=== PATIENT | male | born 1935 | race Caucasian/White ===

== ENCOUNTER 2016-11-02 06:20 | Inpatient (IN) ==
[2016-11-02] MEDS ORDERED: CeFAZolin Pre 2,000 MG/100 ML 2,000 MG/100 ML BAG IVPB ONE (06:49)
[2016-11-02] MEDS ORDERED: Lidocaine 1% 20 ML MDV ID ONE (06:49)
[2016-11-02] MEDS ORDERED: *HR* FentaNYL (PF) 100 MCG/2 ML VIAL ONE (06:54)
[2016-11-02] MEDS ORDERED: Lidocaine -MPF 2% 2 ML VIAL ONE (06:54)
[2016-11-02] MEDS ORDERED: *HR* Propofol 200 MG/20 ML VIAL IVP ONE (06:54)
[2016-11-02] MEDS ORDERED: *HR* Succinylcholine 200 MG/10 ML VIAL IVP ONE (06:54)
[2016-11-02] MEDS ORDERED: Lidocaine -MPF 4% 5 ML AMPUL ONE (06:54)
[2016-11-02] MEDS ORDERED: Ringers Solution, Lactated 1,000 ML IVC SCH (07:00)
[2016-11-02] MEDS ORDERED: Heparin 1,000 UNITS/500 mL NS 500 ML ONE (07:02)
[2016-11-02] MEDS ORDERED: *HR* Rocuronium Bromide 50 MG/5 ML VIAL ONE (07:04)
[2016-11-02] MEDS ORDERED: Heparin 1,000 UNITS/500 mL NS 1,000 ML ONE (07:15)
[2016-11-02] MEDS ORDERED: Lidocaine 1% 20 ML MDV ONE (07:15)
--- NOTE | 2016-11-02 07:21 | History & Physical Report ---
Date of Encounter: 11/02/16 Time of Encounter: 07:20 24 Hour HP Update - Instructions Instructions: If the History and Physical is less than 30 days old and was completed prior to A.M. admission and or procedure and has NOT been updated on calendar day of procedure please complete this update prior to performing procedure. - Update Patient reports changes in Medical Condition: No Changes in assessment/condition: No Changes in Medication: No Preop tests/diagnostics Reviewed: Yes Surgery Remains Indicated: Yes Consent for Planned Operative Procedure(s) Verified: Yes - Pre-Operative Checklist Preoperative Checklist Indicated: Yes Home Medications Include Beta Kari: Yes Beta Kari Taken Today (Day of Surgery): Yes Beta Kari Taken Yesterday (Day Prior to Surgery): Yes Is VTE Prophylaxis Indicated?: Yes
--- NOTE | 2016-11-02 07:25 | Anesthesia Evaluation PreOp ---
Date of Encounter: 11/02/16 Time of Encounter: 07:22 - Past History Planned Operation: R-cEA Cardiac History: [place] (2000,), HTN, Hyperlipidemia, Cardiac Surgery (CABG x 4 2000), Cardiac Stent (NO stents) Pulmonary History: Other LEASING ASSOCIATE History: Syncope, Other (dementia, carotid dz) Anesthesia History: No Prior Anesthetic Complications, Past Anesthesia ( Inguinal Hernia repair 01/2010, CABG x 2009, inguinal/femoral hernia repair w/ mesh, Expl Lap w/ small bowel resetion, Open Appy. IOncisional hernia repair, infected mesh removal) Alcohol Use: none Drug use: none Medications and Allergies Aspirin Enteric Coated [Aspirin EC] 81 mg PO DAILY 06/26/15 [History] Atorvastatin [Lipitor] 20 mg PO DAILY 06/26/15 [History] Donepezil [Aricept] 10 mg PO DAILY 06/26/15 [History] Ezetimibe [Zetia] 10 mg PO DAILY 06/26/15 [History] Levothyroxine [Synthroid] 25 mcg PO DAILY 06/26/15 [History] Multivit-Min/FA/Lycopen/Lutein [Centrum Silver Tablet] 1 tab PO DAILY 06/26/15 [ History] Ramipril [Altace] 10 mg PO DAILY 06/26/15 [History] Melatonin [Melatin] 3 mg PO HS 10/01/16 [History] Memantine [Namenda] 5 mg PO DAILY 10/01/16 [History] Nitroglycerin 0.4 mg SL DAILY PRN 10/01/16 [History] Metoprolol XL (24 HR) Succ [Toprol Xl] 50 mg PO DAILY 10/12/16 [History] Oxybutynin [Ditropan] 2.5 mg PO HS 10/12/16 [History] Allergies diphenhydramine [From Benadryl] Adverse Reaction (Verified 10/12/16 11:32) Agitated - Meds/Allergy Pre-op Review Medications Reviewed: Yes Allergies Reviewed: Yes Beta Blockers on Current Med List: Yes (Metoprolol) If Beta Blockers taken, Date/Time (Last Dose taken): 08/02/17 @ 0600 Anesthesia Results - Labs Laboratory Tests 10/28/16 10/28/16 10/28/16 11:33 11:33 11:33 WBC 5.8 Hgb 13.7 Hct 41.6 Plt Count 183 PT 10.9 INR 1.0 APTT 28.1 Sodium 142 Potassium 4.2 Chloride 105 Carbon Dioxide 31 H BUN 18 Creatinine 1.03 Est GFR (Non-Af Amer) > 60 Glucose 64 L - Imaging EKG: image reviewed (51bpm SB) Anesthesia Exam O2 Sat Height 1.6 m Height 1.6 m Weight 60.328 kg Weight 60.328 kg O2 Sat by Pulse Oximetry 98 Vital Signs Temp Pulse Resp BP Pulse Ox 97.9 F 50 18 147/73 98 11/02/16 06:42 11/02/16 06:42 11/02/16 06:42 11/02/16 06:42 11/02/16 06:42 Height: 5'3" Weight: 131# NPO (# of Hours): MNOC - HEENT Pupil (Motor): Pupils equal, EOMI Mallampati: II Teeth: Edentulous Oral Opening: Greater than 3 - LEASING ASSOCIATE LOC: Oriented LEASING ASSOCIATE Motor: Normal RUE, Normal LUE, Normal RLE, Normal LLE, Normal Face LEASING ASSOCIATE Sensory: Normal: RUE, LUE, RLE, LLE, Face - Cardiac Rhythm: Regular Murmur: Systolic JVD: No - Pulmonary Breath Sounds: bilateral Clear Respiratory Effort: Symmetrical Anesthesia Assess/Plan ASA Score: 3 Modified Eulalia Scale for Level of Consciousness: Cooperative, oriented, and tranquil Anesthetic Plan: General Autologous Blood: Yes Monitoring Plan: Standard Monitors Recovery Plan: PACU Anes Supervising Prov Stmt: PT seen/evaluated, R&B discussed, questions answered and consent obtained. Ze Fontanez MD
[2016-11-02] MEDS ORDERED: Acetaminophen IV 1,000 MG/100 ML INFUS..BTL ONE (07:39)
[2016-11-02] MEDS ORDERED: *HR* Remifentanil 2 MG VIAL IVP ONE (08:24)
[2016-11-02] MEDS ORDERED: EPHEDrine 50 MG/ML VIAL ONE (08:55)
--- NOTE | 2016-11-02 10:24 | Operative Note ---
Date of procedure: 11/02/16 Pre-op diagnosis: right carotid stenosis Post-op diagnosis: same Procedure: right carotid endarterectomy with 8 Fr shunt and patch angioplasty Complications: none Anesthesia: DIVINEA Surgeon: Winston Strickland Estimated blood loss (cc): 100 Specimen: none Condition: stable Disposition: PACU Procedure in Detail: History Krzysztof Irving is an 81-year-old white male who was found to have a abnormal carotid duplex scan. He has a history of dementia. Because of the abnormality on the duplex scan and antrum was obtained. This demonstrated a critical stenosis of the right carotid artery at the level of the internal carotid. The patient was originally scheduled for surgery approximately 2 weeks ago but this needed to be postponed as he was severely hypertensive. He now returns. His blood pressure is well-controlled. Procedure After informed consent was obtained the patient was taken to the operating room. General endotracheal anesthesia was established under arterial line pressure monitoring. The right neck was sterilely prepped and draped. A timeout protocol was observed. An oblique incision was made parallel to the anterior border of the sternocleidomastoid muscle. Dissection was carried down to the carotid bifurcation. Selective control was obtained of the carotid vessels. Heparin was administered in a dose of 5000 units. After 3 minutes later the vessels were clamped with the internal carotid artery clamped first. Using an 11 blade knife and Magallon scissors the artery was opened beginning at the distal common carotid artery and extending up into the internal carotid artery. An 8 Spanish shunt was then inserted atraumatically. Patency of the shunt was confirmed by the use of intraoperative Doppler. Evaluation of the plaque revealed a very thick and dense plaque. This was a homogeneous. There was no finding of acute thrombus or dissection in this region. The endarterectomy was undergone at the distal aspect of the common carotid artery. The dissection was carried circumferentially. It was carried distally into this. Thyroid and external carotid arteries as well as the internal carotid artery. The endpoint was smooth and no tacking sutures were necessary. A patch angioplasty was then performed after inspection of the bed of the vessel to ensure that there is no residual debris present. The angioplasty with a Hemashield patch was performed with 6-0 Prolene suture. Leaving a small space open on the suture line shunt was clamped divided and removed. The final few sutures were placed. The internal was allowed to backbleed and was reclamped. The external and common were opened and finally the internal was reopened. Excellent Doppler signals and pulses were identified throughout the carotid system. A superficial cervical block using half percent Marcaine was performed. The wound was irrigated with antibiotic-containing solution. It was closed with absorbable sutures. A dry sterile dressing was applied. The patient was extubated in the operating room and found to be neurologically stable. He was transported to the recovery room in a hemodynamically stable condition.
[2016-11-02] MEDS ORDERED: *HR* Metoprolol 5 MG/5 ML VIAL IVP ONE (11:03)
[2016-11-02] MEDS ORDERED: Albuterol 2.5 MG/3 ML NEBULIZER IH PRN (11:06)
[2016-11-02] MEDS ORDERED: Ondansetron 4 MG/2 ML VIAL IVP PRN ×2 (11:06→11:59)
[2016-11-02] MEDS ORDERED: *HR* Labetalol 100 MG/20 ML MDV IVP PRN (11:06)
[2016-11-02] MEDS ORDERED: Naloxone 0.4 MG/ML INJ IVP PRN (11:59)
[2016-11-02] MEDS ORDERED: *HR* Morphine 2 MG/ML SYRINGE IVP PRN (11:59)
[2016-11-02] MEDS ORDERED: Acetaminophen 325 MG TABLET PO PRN (11:59)
[2016-11-02] MEDS ORDERED: *HR* HYDROcodone/Acet 5/325 mg TABLET PO PRN (11:59)
[2016-11-02] MEDS ORDERED: Nitroglycerin 0.4 MG TAB.SUBL SL PRN (11:59)
--- NOTE | 2016-11-02 12:06 | Anesthesia Evaluation Post Op ---
Date of Encounter: 11/02/16 Time of Encounter: 12:05 - Vital Signs Vital Signs: Vital Signs/O2 Sat/Glucose, Most Current Temp Pulse Resp BP Pulse Ox 11/02/16 11:58 98 F 58 16 134/64 98 11/02/16 11:48 98 F 59 16 150/77 98 11/02/16 11:38 57 16 179/84 97 11/02/16 11:28 57 16 186/88 99 11/02/16 11:18 98 F 60 16 188/90 99 11/02/16 11:08 68 16 193/97 96 11/02/16 10:58 71 16 191/95 94 L 11/02/16 10:48 97.3 F L 101 16 191/95 99 - Lungs Lungs: Clear Ascult./Percussion - Airway Airway: Non-obstructed - Cardiovascular Regular Rate - Mental Status Mental Status: Alert & Oriented, Answers Appropriately - Pain Pain Scale: 0 Pain Scale used: Numeric (1 - 10) - Nausea Vomiting Nausea Vomiting: Not Present - Hydration Hydration: NPO, Sanon catheter - Discharge PostOp Status: Transfer Patient to floor Anes Supervising Prov Stmt: Pt seen/evaluated, VSS and pt has met criteria for discharge to floor. - MD Estee
[2016-11-02] MEDS: ceFAZolin 2,000 MG in D5% in Water 100 ML IVPB SCH (15:24)
[2016-11-02] MEDS ORDERED: *HR* LORazepam 2 MG/ML VIAL ONE (20:23)
[2016-11-02] MEDS: Melatonin 3 MG TABLET PO SCH (22:18)
[2016-11-03] MEDS: ceFAZolin 2,000 MG in D5% in Water 100 ML IVPB SCH (00:06)
[2016-11-03 04:24] LABS: Basophils % 0.4 %; Eosinophils # 0.1 K/mcL (0.0-0.6); Eosinophils % 1.7 %; Hematocrit 34.6 % (37.5-50.1); Immature Granulocytes % 0.3 % (0-4); Lymphocytes # 1.3 K/mcL (0.6-4.6); Lymphocytes % 18.7 %; Mean Corpuscular HGB Conc 32.4 g/dL (31.6-35.5); Mean Corpuscular Hemoglobin 31.9 pg (28.0-33.3); Mean Corpuscular Volume 98.6 fL (83.0-100.0); Mean Platelet Volume 10.1 fL (9.4-12.4); Monocytes # 0.5 K/mcL (0.0-1.3); Monocytes % 7.2 %; Neutrophils # 4.9 K/mcL (1.6-8.9); Platelet Count 142 K/mcL (140-400); Red Blood Count 3.51 M/mcL (4.19-5.50); Red Cell Distribution Width 13.4 % (11.5-14.5); Segmented Neutrophils % 71.7 %
[2016-11-03 04:34] LABS: Hemoglobin 11.2 g/dL (12.9-16.9)
[2016-11-03 04:36] LABS: BUN/Creatinine Ratio 16 (6-26); Blood Urea Nitrogen 16 mg/dL (8-26); Calcium 8.5 mg/dL (8.6-10.8); Carbon Dioxide 27 mEq/L (19-29); Chloride 104 mEq/L (98-109); Glucose 114 mg/dL (70-99); Osmolality,Calculated 292 (280-300); Potassium 4.1 mEq/L (3.5-4.5); Sodium 140 mEq/L (136-145); eGFR For African Americans > 60 (> 60); eGFR For Non-African Americans > 60 (> 60)
[2016-11-03] MEDS: Lisinopril 20 MG TABLET PO SCH (09:33)
[2016-11-03] MEDS: Aspirin Enteric Coated 81 MG Tablet PO SCH (09:33)
[2016-11-03] MEDS: Metoprolol XL (24 HR) Succ 50 MG TAB.ER.24H PO SCH (09:34)
[2016-11-03] MEDS: Levothyroxine 25 MCG TABLET PO SCH (09:34)
[2016-11-03] MEDS: ZETIA 10 MG PO SCH (09:34)
[2016-11-03] MEDS: Multivit/Ca/Min/Fe/FA 1 TAB TABLET PO SCH (09:34)
--- NOTE | 2016-11-03 19:21 | Vascular/[facility] Progress Note ---
Date of Encounter: 11/03/16 Time of Encounter: 19:19 - Assessment and plan (1) Altered mental status Current Visit: Yes Status: Chronic Chronic Alzheimer's dementia. Exacerbation following general anesthesia. Qualifiers: Altered mental status type: unspecified Qualified Code(s): R41.82 - Altered mental status, unspecified (2) Carotid artery disease Current Visit: Yes Status: Acute Status post right carotid endarterectomy. The patient has no neurologic deficits related to the successful right carotid endarterectomy. Due to his agitation it was felt best that the patient be treated as a inpatient for further rehabilitation. Consultation was obtained from appropriate rehabilitative services will also agree with temporary inpatient rehabilitation care. Qualifiers: Laterality: right Qualified Code(s): I77.9 - Disorder of arteries and arterioles, unspecified - Subjective Interval history: Patient is postoperative day #1 following right carotid endarterectomy. The patient has demonstrated no new neurologic deficits. He has no particular complaints. Consultations have been placed for evaluation for short term inpatient rehabilitation. Vital Signs, Last 4 Hours Temp Pulse Resp BP Pulse Ox 11/03/16 16:33 98.5 F 58 16 144/83 97 11/03/16 16:00 58 - Physical Examination General: Present: Other (Mildly agitated.) HEENT: Present: Normocephaly, Other (Ecchymosis around the right eye.) Neck: Absent: JVD, Midline deformity, Tracheal deviation Cardiac: Present: Reg Rate and Rhythm Lungs: Present: Normal Breath Sounds Neuro: Present: No focal deficits noted, Other (Impaired mentation with mild agitation secondary to his chronic dementia.) Vascular: Present: Surgical incisions (Right neck surgical dressing is clean and dry and intact.) Abdomen: Present: Soft, Non-tender - VTE Documentation of Mechanical Device: Intermittent pneumatic compression device Results 11/03/16 04:02 11/03/16 04:02 Lab Results, Last 24 hours 11/03/16 11/03/16 04:02 04:02 WBC 6.9 Hgb 11.2 L D Hct 34.6 L Plt Count 142 Sodium 140 Potassium 4.1 Chloride 104 Carbon Dioxide 27 BUN 16 Creatinine 1.03 Glucose 114 H Calcium 8.5 L Consult Discharge Plan - Plan Referrals: Gregorio Hutchins Jr, MD [Primary Care Provider] -
[2016-11-03] MEDS: Melatonin 3 MG TABLET PO SCH (20:40)
[2016-11-03] MEDS: *HR* LORazepam 2 MG/ML VIAL IVP PRN (20:45)
[2016-11-04] MEDS: *HR* LORazepam 2 MG/ML VIAL IVP PRN (03:43)
[2016-11-04 11:45] VITALS: BP 136/78
--- NOTE | 2016-11-04 12:26 | Discharge Summary ---
Date of Encounter: 11/04/16 Time of Encounter: 12:24 - Discharge Diagnosis (1) Altered mental status Priority: Secondary Status: Chronic Comments: Chronic Alzheimer's disease Qualifiers: Altered mental status type: unspecified Qualified Code(s): R41.82 - Altered mental status, unspecified (2) Carotid artery disease Priority: Primary Status: Acute Comments: Critical right internal carotid artery stenosis Qualifiers: Laterality: right Qualified Code(s): I77.9 - Disorder of arteries and arterioles, unspecified (3) HTN (hypertension) Priority: Secondary Status: Chronic Comments: Chronic hypertension. Blood pressure has been well controlled during this hospitalization after alteration of medication schedule preoperatively per Dr. Hutchins. Qualifiers: Hypertension type: essential hypertension Qualified Code(s): I10 - Essential (primary) hypertension - Discharge Medications Home Medications: Aspirin Enteric Coated [Aspirin EC] 81 mg PO DAILY 06/26/15 [History] Atorvastatin [Lipitor] 20 mg PO DAILY 06/26/15 [History] Donepezil [Aricept] 10 mg PO DAILY 06/26/15 [History] Ezetimibe [Zetia] 10 mg PO DAILY 06/26/15 [History] Levothyroxine [Synthroid] 25 mcg PO DAILY 06/26/15 [History] Multivit-Min/FA/Lycopen/Lutein [Centrum Silver Tablet] 1 tab PO DAILY 06/26/15 [ History] Ramipril [Altace] 10 mg PO DAILY 06/26/15 [History] Melatonin [Melatin] 3 mg PO HS 10/01/16 [History] Memantine [Namenda] 5 mg PO DAILY 10/01/16 [History] Nitroglycerin 0.4 mg SL DAILY PRN 10/01/16 [History] Metoprolol XL (24 HR) Succ [Toprol Xl] 50 mg PO DAILY 10/12/16 [History] Oxybutynin [Ditropan] 2.5 mg PO HS 10/12/16 [History] Allergies/Adverse Reactions: Allergies diphenhydramine [From Benadryl] Adverse Reaction (Verified 10/12/16 11:32) Agitated Date of admission: 11/02/16 12:41 Primary care physician: Gregorio Hutchins Jr, MD Consults: 11/03/16 08:29 Consult to Theatre Manager [CONS] Routine Reason for SW Consult: home health assessment vs in patient rehab for Alz Dementia 11/03/16 08:31 Consult to Physical Therapy [CONS] Routine Comment: Evaluate, develop and implement POC 11/03/16 13:26 OT [Consult to Occupational Therapy] [CONS] Routine Comment: Evaluate, develop and implement POC Procedure(s) Performed: Right carotid endarterectomy Discharging clinician: Winston Strickland Anticipated date of discharge: 11/04/16 - Patient Status Disposition: Transfer SNF Condition: Fair Functional capacity at discharge: uses cane/walker Overall status at discharge: patient is progressing back to baseline - Discharge Instructions Follow Up With: Gregorio Hutchins Jr, MD [Primary Care Provider] - Winston Strickland MD [Partnered Physician] - (2 weeks) - Diet and Activity Activity: as per physical therapy Diet: advance to your usual diet - Hospital Course Hospital course: Mr. Irving is a 81 year old male Admitted for high-grade and critical right internal carotid artery stenosis. Patient also has a long-standing history of Alzheimer's disease and hypertension. The patient underwent a right carotid endarterectomy. The patient tolerated the procedure well. There were no periprocedural complications. The patient had mental status changes and was more week and dependent on assistance following surgery. Therefore he was seen in consultation by physical therapy and occupational therapy and school social worker. It was judged appropriate for the patient to go to an inpatient rehabilitation status on a short-term basis before returning to home. The patient will be going to [facility] upon discharge later today. - Time Spent with Patient Total time spent providing and/or coordinating discharge services: Exam Vital Signs, Last 4 Hours Temp Pulse Resp BP Pulse Ox 11/04/16 12:00 55 11/04/16 11:43 98.0 F 51 16 136/78 100 11/04/16 08:41 58 HEENT: Present: Normocephaly, Trachea midline, Other (Right periorbital ecchymosis) Neck: Absent: JVD, Midline deformity, Tracheal deviation Cardiac: Present: Reg Rate and Rhythm Lungs: Present: Normal Breath Sounds Neuro: Present: Other (Chronic dementia. Patient is sedated secondary to use of Ativan earlier this morning.) Abdomen: Present: Soft, Non-tender Vascular: Present: Surgical incisions (Right neck incision is clean and dry and healing well.) - VTE Documentation of Mechanical Device: Intermittent pneumatic compression device
--- NOTE | 2016-11-04 12:35 | Physician Discharge Referral ---
ExtendedCare Referral Info Transfer To: [facility] Provider in Charge: [place] Provider in Charge after Transfer: PCP Institutional Level of Care: Skilled - Diagnosis (1) Altered mental status Priority: Primary Status: Chronic (2) Carotid artery disease Priority: Primary Status: Acute (3) HTN (hypertension) Priority: Secondary Status: Chronic Prognosis: Fair Aware of Diagnosis: Patient, Family Aware of Prognosis: Patient, Family - Transfer Medications Home Medications: Aspirin Enteric Coated [Aspirin EC] 81 mg PO DAILY 06/26/15 [History] Atorvastatin [Lipitor] 20 mg PO DAILY 06/26/15 [History] Donepezil [Aricept] 10 mg PO DAILY 06/26/15 [History] Ezetimibe [Zetia] 10 mg PO DAILY 06/26/15 [History] Levothyroxine [Synthroid] 25 mcg PO DAILY 06/26/15 [History] Multivit-Min/FA/Lycopen/Lutein [Centrum Silver Tablet] 1 tab PO DAILY 06/26/15 [ History] Ramipril [Altace] 10 mg PO DAILY 06/26/15 [History] Melatonin [Melatin] 3 mg PO HS 10/01/16 [History] Memantine [Namenda] 5 mg PO DAILY 10/01/16 [History] Nitroglycerin 0.4 mg SL DAILY PRN 10/01/16 [History] Metoprolol XL (24 HR) Succ [Toprol Xl] 50 mg PO DAILY 10/12/16 [History] Oxybutynin [Ditropan] 2.5 mg PO HS 10/12/16 [History] Allergies/Adverse Reactions: Allergies diphenhydramine [From Benadryl] Adverse Reaction (Verified 10/12/16 11:32) Agitated - Respiratory Orders Smoking Cessation: Smoking cessation has been advised. For more information, call the [place] Tobacco Quit Line at 2-380-GGTB-NOW. - Ancillary Orders May use pressure relief devices daily prn, May go on DESEAN w/family/respon constitution party w /meds at nurse discretion PRN - Mobility Orders Other (For physical therapy) - Rehabiliation Orders Rehab Potential: Fair Rehab Orders: Evaluation for Physical Therapy, Evaluation for Occupational Therapy, Evaluation for Speech Therapy - Treatments Skin tear care topically daily PRN per policy - Diet Orders Regular CERTIFICATION: I certify that the transfer of the above named patient to an Extended Care Facility is necessary for the continuing treatment of the diagnosis listed. The above information is true and accurate reflection of patient's current condition. Confidential - Redisclosure prohibited without a patient's written consent.
[2016-11-04] MEDS: Lisinopril 20 MG TABLET PO SCH (16:08)
[2016-11-04] MEDS: Multivit/Ca/Min/Fe/FA 1 TAB TABLET PO SCH (16:08)
[2016-11-04] MEDS: Levothyroxine 25 MCG TABLET PO SCH (16:08)
[2016-11-04] MEDS: Metoprolol XL (24 HR) Succ 50 MG TAB.ER.24H PO SCH (16:08)
[2016-11-04] MEDS: Aspirin Enteric Coated 81 MG Tablet PO SCH (16:08)
[2016-11-04] MEDS: ZETIA 10 MG PO SCH (16:09)
== END 2016-11-04 16:50 | DRG 39 ==
LOC: SAMDAY 06:20 → 2NNU 12:41
PROVIDERS: ADMIT Surgery Vascular Surgery; ATTEND Surgery Vascular Surgery